=== PATIENT | male | born 1935 | race Caucasian/White ===

== ENCOUNTER 2019-02-14 16:52 | Inpatient (IN) ==
[2019-02-14] MEDS ORDERED: NS 1,000 ML IV ONE ×3 (17:11→20:02)
--- NOTE | 2019-02-14 17:17 | PROVIDER DOCUMENTATION ---
HPI-General Adult - General Chief Complaint: Heat Related Stated Complaint: HEAT RELATED Time Seen by Provider: 02/14/19 17:07 Source: patient, family, EMS Allergies/Adverse Reactions: Patient Allergies Allergy/AdvReac Type Severity Reaction Status Date / Time No Known Allergies Allergy Verified 02/14/19 17:08 Home Medications: Home Medication List Medication Instructions Recorded Confirmed Last Taken Type Amlodipine Besylate 1 tab PO DAILY 02/14/19 02/14/19 Unknown History Bisoprolol Fumarate/Hctz 1 tab PO DAILY 02/14/19 02/14/19 Unknown History [Bisoprolol-Hctz 5-6.25 mg Tab] Citalopram Hydrobromide 20 mg PO DAILY 02/14/19 02/14/19 Unknown History [Citalopram HBr] Levothyroxine [Synthroid] 50 microgm PO DAILY 02/14/19 02/14/19 Unknown History Lisinopril 1 tab PO DAILY 02/14/19 02/14/19 Unknown History - History of Present Illness -Gen Adult Nature of Presenting Problems: 83 YOM PRESENTS VIA EMS FOR POSSIBLE HEAT RELATED DIZZINESS AND HYPOTENSION. HE WAS FOUND BY HIS SON WITH THE AC OFF IN THE HOUSE WITH DIZZINESS. HE DENIES CURRENT SYMPTOMS HAS RECEIVED 1L OF NS IN ROUTE. HE DENIES CP, FALL, SOB, N/V/D. THERE IS NO TIME OF WHEN THE AIR WAS NOT WORKING THE PATIENT LIVES ALONE Location of Pain/Injury: reports: none Pain Radiation: reports: no radiation Quality of Pain: reports: none Severity: reports: moderate Onset/Duration: reports: unsure Timing: reports: improving Context/Activities at Onset: reports: other (HEAT EXPOSURE) Modifying Factors: improves with: nothing Associated Symptoms: reports: dizziness, weakness Similar Symptoms Previously?: No Recently seen or treated by another doctor?: No Review of Systems - Adult - REVIEW OF SYSTEMS - ADULT Constitutional: reports: no symptoms reported. denies: see HPI, chills, fever, fatique, night sweats, weight gain, weight loss, other Eyes: reports: no symptoms reported. denies: see HPI, discharge, dry eyes, decreased vision, blurred vision, double vision, eye pain, redness, other Ears, Nose, Mouth & Throat: reports: no symptoms reported. denies: see HPI, ear discharge, ear pain, hearing loss, tinnitus, epistaxis, sinus problem, nose pain, loose teeth, mouth/dental pain, mouth swelling, hoarseness, throat pain, t hroat swelling, other Cardiovascular: reports: no symptoms reported. denies: see HPI, chest pain, edema, heart murmur, irregular heart rate, orthopnea, palpitations, poor cir culation, PND, syncope, other Respiratory: reports: no symptoms reported. denies: see HPI, chronic cough, cough, dyspnea on exertion, excessive sputum production, hemoptysis, pleurisy, shortness of breath, wheezing, other Gastrointestinal: reports: no symptoms reported. denies: see HPI, abdominal pain, hematemesis, constipation, diarrhea, difficulty swallowing, frequent heartburn, nausea, poor appetite, rectal bleeding, vomiting, other Genitourinary: reports: no symptoms reported. denies: see HPI, dysuria, discharge, frequency, flank pain, frequent UTI's, hematuria, hesitency, incontinence, urinary retention, urgency, other Musculoskeletal: reports: see HPI, muscle weakness. denies: no symptoms reported, bone pain, back pain, frequent leg cramps, joint pain, joint swelling, muscle aches, neck pain, other Integumentary: reports: no symptoms reported. denies: see HPI, hives, hair loss, itching, mole changes, nail changes, rash, skin sores/ulcer, skin thickening, other Neurological: reports: see HPI, dizziness/vertigo. denies: no symptoms reported, ataxia, headache/migraines, loss of balance, numbness, paresthesia, seizure, slurred speech, syncope, tremors, other Psychiatric: reports: no symptoms reported. denies: see HPI, anxiety, anti- depressant use, alcohol/drug dependence, depression, emotional problems, insomnia, panic attacks, suicidal thoughts, other Endocrine: reports: no symptoms reported. denies: see HPI, change in skin pigment, excessive sweating, goiter, cold intolerance, heat intolerance, increased hunger, increased thirst, polyuria, other Hematologic/Lymphatic: reports: no symptoms reported. denies: see HPI, blood clots, easy bruising, low blood count, lymphedema, prolonged bleeding, swollen lymph nodes, transfusions, other Allergic/Immunologic: reports: no symptoms reported. denies: see HPI, allergic reactions, allergic rhinitis, asthma, eczema, food allergy, frequent infections, hay fever, hives, positive PPD, urticaria, other Past History - Adult - PAST MEDICAL HISTORY-ADULT Review of Records: reports: Nursing Assessment Review, Social history reviewed & non-contributory. Physical Exam-General - PHYSICAL EXAM-ADULT Initial Vital Signs Reviewed: Yes - CONSTITUTIONAL General Appearance: alert, no apparent distress - EYES Eyes: PERRL/EOMI, pink conjunctivae - HEAD, EARS, NOSE, MOUTH & THROAT HENMT: normocephalic/atraumatic, moist mucous membranes, normal ENT inspection - NECK Neck: non-tender, full range of motion, supple - RESPIRATORY Respiratory: chest non-tender, lungs clear, normal breath sounds, no pleuratic chest pain, no respiratory distress, no accessory muscle use - CARDIOVASCULAR Cardiovascular: normal peripheral pulses, regular rate, rhythm, no edema, no gallop, no JVD, no murmur - GASTROINTESTINAL (ABDOMEN) Abdominal Exam: normal bowel sounds, non tender, soft - LYMPHATIC Lymphatic: no adenopathy - MUSCULOSKELETAL Back Exam: normal inspection, no CVA tenderness, no vertebral tenderness Extremity: normal range of motion, non-tender - SKIN Integumentary: normal color, normal turgor, warm/dry - NEUROLOGIC Neurologic: grossly normal - PSYCHIATRIC Psych/Mental Status: normal mood/affect, oriented x 3 Progress - PLAN OF CARE/RESULTS Progress/Plan/Lab Results: Vital Signs - 8 hr 02/14/19 17:02 Pulse Rate 92 H Respiratory Rate 18 Blood Pressure 97/61 O2 Sat by Pulse Oximetry 96 Orders Category Date Time Status Orthostatic Vital Signs NOW Care 02/14/19 17:[address] HEAD W/O CONTRAST [CT] Stat Exams 02/14/19 17:11 Ordered CBC WITH ELECTRONIC DIFF [HEME] Stat Lab 02/14/19 17:11 Uncollected CK PROFILE [SP CHEM] Stat Lab 02/14/19 17:11 Ordered COMPREHENSIVE METABOLIC PANEL [CHEM] Stat Lab 02/14/19 17:11 Uncollected PROTIME WITH INR [COAG] Stat Lab 02/14/19 17:11 Uncollected PTT [COAG] Stat Lab 02/14/19 17:11 Uncollected TROPONIN T Stat Lab 02/14/19 17:11 Ordered Ns 1000 ml IV Bolus X1 Med 02/14/19 17:11 Ordered 0.9% Sodium Chloride Inj [Ns] 1,000 ml IV 999 mls/hr EKG [EKG] Stat Ther 02/14/19 17:11 Ordered Result Diagrams: 02/14/19 17:25 02/14/19 17:25 - EKG 1 Time of EKG reading by physician:: 17:32 EKG Read and Signed by:: Shamir Proctor EKG Interpretation (*Must complete 3 of following elements*): Abnormal Rate: 84 Rhythm: SR WITH OCC PVC Jbphh: normal QRS: LBB (BIFASICULAR BLOCK), RBB (BIFASICULAR BLOCK) MT Interval: normal ST Wave: normal Prior EKG Comparison: no prior EKG - CT/MRI 1 CT Study: Head Impression: See EMR Report (CT HEAD W/O CONTRAST - 02/14/2019 INDICATION: DIZZINESS COMPARISON: None FINDINGS: There is moderate diffuse cerebral atrophy. No intracranial mass or hemorrhage. There is mild cerebral white matter chronic microvascular disease. The skull is intact. The sinuses, mastoids, and middle ears are clear. IMPRESSION: No acute process. This exam was performed using automated exposure control, adjustment of mA or kV according to patient size, and/or use of iterative reconstruction technique Electronically signed by Ravinder Blair 02/14/2019 7:19 PM 02/14/191918 Interpreting Physician: Ravinder Blair MD Dictated Date/Time: 02/14/191917 cc: Flor Vazquez; Trevin Kaplan MD) - CONSULTS/PCP/HOSPITALIST Notification #1 *Consult/PCP/Hospitalist*: DR BEATTY Time Discussed: 19:27 Consult Disposition: Admit Departure - Departure Date of Disposition Decision: 02/14/19 Time of Disposition Decision: 19:24 DIAGNOSIS: JOHNSON (acute kidney injury), Dehydration Disposition: ADMITTED INPATIENT 09 Certified Medical Emergency: Emergent Condition: Stable Referrals and Follow-Ups: Trevin Kaplan MD [Primary Care Provider] - - Critical Care Note This patient required my direct & personal management of CC.: No Attestation - Physician/ MELODY Attestation Patient care was provided by Advanced Practice Provider:: Yes Advanced Practice Provider:: Flor Vazquez Advanced Practice Provider documentation review:: The Mid-level provider documentation, treatment plan and medical decision making was reviewed by the physician who agrees with all treatment and medical decision making by the MLP. The physician spent face to face time with patient:: No Advanced Practice Provider documentation review:: Supervising physician onsite and consulted in the evaluation and care of this patient. The physician did not have a face to face encounter with the patient.
--- NOTE | 2019-02-14 17:38 | EKG Report ---
Test Performed on : 02/14/2019 5:32:04 PM Test Reason : DIZZINESS Blood Pressure : / mmHG Vent. Rate : 084 BPM Atrial Rate : 084 BPM P-R Int : 152 ms QRS Dur : 150 ms QT Int : 444 ms P-R-T Axes : 013 -80 053 degrees QTc Int : 524 ms Sinus rhythm. with occasional premature ventricular complexes. Right bundle branch block Left anterior fascicular block Bifascicular block Abnormal ECG No previous ECGs available Unconfirmed Result
[2019-02-14 17:47] LABS: BASO# 0.01 X1000 (0.0-0.2); BASO% 0.1 % (0.0-0.8); HEMATOCRIT 48.9 % (42.0-52.0); HEMOGLOBIN 16.3 g/dL (14.0-18.0); IMM GRAN# 0.05 X1000 (0.0-0.04); IMM GRAN% 0.5 % (0.0-0.5); LYMPH# 0.61 X1000 (1.2-3.4); LYMPH% 5.8 % (20.5-51.1); MCH 30.1 PG (27-31); MCHC 33.3 g/dL (33-37); MCV 90.4 FL (81-99); MONO# 0.53 X1000 (0.11-0.59); MPV 11.4 FL (7.4-10.4); NEUT% 88.6 % (42.2-75.2); PLT 175 X1000 (130-400); RBC 5.41 XMIL (4.7-6.1); RDW 14.6 % (11.5-14.5)
[2019-02-14 17:56] LABS: INR 1.15; PROTIME 15.3 Seconds (11.0-16.0)
[2019-02-14 17:57] LABS: PTT 24.1 Seconds (22.3-41.8)
[2019-02-14 18:14] LABS: ALBUMIN 3.9 g/dL (3.5-5.0); CALCIUM 8.6 mg/dL (8.8-10.2); CREATININE 5.4 mg/dL (0.7-1.2); POTASSIUM 4.7 mmol/L (3.5-5.1); TOTAL BILIRUBIN 0.8 mg/dL (0.20-1.00); TOTAL PROTEIN 6.6 g/dL (6.3-8.3)
--- NOTE | 2019-02-14 19:21 | Diag Imaging Result Doc PS360 ---
CT HEAD W/O CONTRAST - 02/14/2019 INDICATION: DIZZINESS COMPARISON: None FINDINGS: There is moderate diffuse cerebral atrophy. No intracranial mass or hemorrhage. There is mild cerebral white matter chronic microvascular disease. The skull is intact. The sinuses, mastoids, and middle ears are clear. IMPRESSION: No acute process. This exam was performed using automated exposure control, adjustment of mA or kV according to patient size, and/or use of iterative reconstruction technique Electronically signed by Ravinder Blair 02/14/2019 7:19 PM
[2019-02-15 06:56] LABS: HEMATOCRIT 45.4 % (42.0-52.0); MCH 30.1 PG (27-31); MCV 91.2 FL (81-99); RBC 4.98 XMIL (4.7-6.1); RDW 14.3 % (11.5-14.5); WBC 10.42 X1000 (4.8-10.8)
[2019-02-15 07:19] LABS: ALBUMIN 3.4 g/dL (3.5-5.0); CALCIUM 8.5 mg/dL (8.8-10.2); CREATININE 3.4 mg/dL (0.7-1.2); POTASSIUM 4.1 mmol/L (3.5-5.1); TOTAL BILIRUBIN 0.6 mg/dL (0.20-1.00); TOTAL PROTEIN 6.1 g/dL (6.3-8.3)
[2019-02-15 07:20] LABS: MAGNESIUM 2.3 mg/dL (1.5-2.7)
[2019-02-15] MEDS: NS 1,000 ML IV SCH ×3 (07:33→22:26)
--- NOTE | 2019-02-15 16:09 | Diag Imaging Result Doc PS360 ---
EXAM: MRI BRAIN W/O CONTRAST 02/15/2019 HISTORY: ams r/o cva TECHNIQUE: T1 sagittal, axial, T2, FLAIR, DWI axial and coronal gradient echo. COMMENT: There are no previous MRI studies available for comparison. There is some increased T2-weighted signal intensity in the yousif and there are patchy and punctate areas of increased T2-weighted signal intensity in the subcortical and periventricular white matter bilaterally particularly in the area near the right frontal horn. There is no evidence of restricted diffusion. No mass effect, bleed, or abnormal extra-axial fluid collection is present. IMPRESSION: Chronic ischemic microvascular changes. No evidence of acute disease. Electronically signed by Maury Stroud 02/15/2019 4:07 PM
--- NOTE | 2019-02-15 16:27 | Diag Imaging Result Doc PS360 ---
EXAM: US RENAL 2 (RETROPER) COMPLETE 02/15/2019 HISTORY: aRF TECHNIQUE: Renal ultrasound COMMENT: The right kidney is 9.4 x 4.9 x 5.5 cm. The left is 10.4 x 5.5 x 5.8 cm. There is a 5.2 cm cyst in the lower pole of the left kidney. There is no evidence of solid mass hydronephrosis or stones. The bladder is not well distended. IMPRESSION: No evidence of obstructive uropathy. Electronically signed by Maury Stroud 02/15/2019 4:25 PM
--- NOTE | 2019-02-15 17:55 | HISTORY AND PHYSICAL ---
PRIMARY CARE PROVIDER: Trevin Kaplan MD. CHIEF COMPLAINT: Unknown per patient. Per ED record, heat related. HISTORY OF PRESENT ILLNESS: Mr. Pat is an 83-year-old gentleman who was brought into the ED via EMS for possible heat related dizziness and hypotension. He was found by his son with the AC off in his house with dizziness. Upon examination this morning, the patient still had no recollection of the events that led him to coming into the hospital. He just states I know I went to sleep and here I am. There is some question of dementia. The patient has repeated the same stories about his as well as his Corvette several times throughout the course of my interview. He was easily redirected and then would go back to the same stories and asking the same questions. Workup in the ED showed dehydration and acute kidney injury. He has had some improvement with IV fluids overnight. We are currently checking a urinalysis and will continue with his IV fluids and home medications as appropriate. PAST MEDICAL HISTORY: As per ED record: 1. Hypertension. 2. Hypothyroidism. PAST SURGICAL HISTORY: Relatively unknown. There is no family at bedside. FAMILY HISTORY: Unknown. SOCIAL HISTORY: He is a . He was for 53 years. He reports that he still drives every day to [place] to get him a biscuit and gravy and Coke. He also loves to drive and bing around with a red Corvette. He denies any tobacco or alcohol use. He first retired from [employer] and [employer] [facility] [place]. His 's name was Neha and she was an SLIP [employer]ER for Dr. [employer]irst[employer]. They have 3 monkeys, AKA children. PHYSICAL EXAMINATION: VITAL SIGNS: Temperature 97.7 degrees, heart rate 53, respirations 18, blood pressure 104/86, O2 is 98% on room air. GENERAL: Mr. Pat is a pleasantly confused, 83-year-old male who is sitting up in the bed, in no acute distress. HEENT: Atraumatic, normocephalic. PERRL. Mucous membranes are dry. Poor dentition. He does have some type of dentures that he wears on the top and bottom that he does not currently have. We will see if staff has them or if they were at home. CARDIOVASCULAR: S1, S2 appreciated. No murmurs, gallops, rubs noted. RESPIRATORY: Lung sounds clear bilaterally. GI: Soft, nontender, nondistended. Positive bowel sounds 4 quadrants. EXTREMITIES: Negative for edema. NEUROLOGIC: Patient is awake, alert. He knows his name, his date of . He was unsure on the year or where he was, but he knew he was in the hospital. He was unsure of his situation and why he was in the hospital. His last thing he remembered was just lying down to go to sleep. He does repeat himself quite often. Will tell you the same story and ask you the same questions repeatedly. However, he is easily redirected. DIAGNOSTIC DATA: Head CT showed no acute process, but some moderate diffuse cerebral atrophy and mild cerebral white matter chronic microvascular disease. LABORATORY DATA: White count 10, hemoglobin and hematocrit 15 and 45, platelet count is 118,000. Sodium 146, potassium 4.1, BUN 121, creatinine 3.4. Initially his BUN was 140, creatinine was 5.4, blood glucose is 118, magnesium 2.3. Troponin 0.030. CK 52. ASSESSMENT AND PLAN: 1. Heat exhaustion. We will continue with IV fluids. 2. Acute kidney injury. We will continue with aggressive IV hydration. 3. Dehydration secondary to heat exhaustion. We will continue with IV fluids. 4. Probable dementia. 5. Hypothyroidism. 6. Hypertension. 7. Further recommendation to follow physician evaluation, laboratory data and diagnostic data. There was currently no family at the bedside, so I do not know the patient's baseline cognitive function. We may need to further investigate with an MRI. We will wait to see if his kidney function continues to improve before we consult Nephrology. We will check some more urine labs. We will check some more labs in relation to his kidney function as we do not know how aggressive the family will want us to be at this time. Dictated by LIZZ Pruett for Jimmie Dowling MD cc: MD Trevin Li MD
[2019-02-15 21:03] LABS: BILIRUBIN URINE NEGATIVE (NEGATIVE); BLOOD URINE NEGATIVE (NEGATIVE); GLUCOSE URINE NEGATIVE (NEGATIVE); KETONE URINE NEGATIVE (NEGATIVE); LEUKOCYTES URINE NEGATIVE (NEGATIVE); NITRITE URINE NEGATIVE (NEGATIVE); PROTEIN URINE NEGATIVE (NEGATIVE); UROBILINOGEN URINE NORMAL
[2019-02-15 21:04] LABS: CLARITY CLEAR (CLEAR); COLOR YELLOW
[2019-02-15 21:07] LABS: URINE BACTERIA 1+ /HFP; URINE CAST NONE SEEN /LPF; URINE CRYSTAL NONE SEEN /HPF; URINE EPITHELIAL CELLS <10 /HPF (<10); URINE SOURCE CLEAN CATCH; URINE WBC <10 /HPF (<10); URINE YEAST NONE SEEN /HPF
--- NOTE | 2019-02-16 02:22 | HISTORY AND PHYSICAL ---
SUBJECTIVE: The patient was seen and examined by myself. Full note dictated and discussed with the nurse practitioner. The patient notes that he has not really been feeling well for the past year after his of several years . He notes he did not eat or drink very well. Denies any suicidal or homicidal ideations. He was noted to be on the floor by his son and was brought to the ER in acute renal failure. We are going to place him in the hospital, IV fluids, follow his kidney function, it was 5.4, currently it is 3.6 after fluid rehydration. We will continue to follow. cc: Jimmie Dowling MD
[2019-02-16 06:50] LABS: ALBUMIN 3.3 g/dL (3.5-5.0); CALCIUM 8.4 mg/dL (8.8-10.2); CREATININE 1.6 mg/dL (0.7-1.2); PHOSPHORUS 3.1 mg/dL (2.7-4.5); POTASSIUM 4.2 mmol/L (3.5-5.1)
[2019-02-16] MEDS: CELEXA PO SCH (10:26)
[2019-02-16] MEDS: NORVASC PO SCH (10:26)
[2019-02-16] MEDS: NS 1,000 ML IV SCH ×2 (10:26→17:27)
[2019-02-17] MEDS: NS 1,000 ML IV SCH ×2 (02:12→09:25)
--- NOTE | 2019-02-17 03:04 | PROGRESS NOTE ---
DATE: 02/16/2019 SUBJECTIVE: Patient notes that he is feeling better. Denies any fevers or chills. Has not really been out of bed and ambulating. PHYSICAL EXAMINATION: Vital Signs: Reviewed. General: He is awake, alert. HEENT: Normocephalic, atraumatic. JANET. Neck: Supple. No JVD. Cardiovascular: Regular rate. Chest: Clear. Abdomen: Soft. Extremities: Moves all extremities. Neurologic: No changes. ASSESSMENT: 1. Nausea, vomiting, appears resolved. 2. Acute renal failure. Continues to improve. Creatinine was 5.6 on admit, currently is down to 1.6. 3. Heat exhaustion. 4. Dehydration. 5. Expected dementia. The patient frequently repeats himself and does not remember the conversation that was had earlier. 6. Hypothyroidism. 7. Hypertension. PLAN: We will continue patient in the hospital. Continue IV fluids today. Continue physical therapy. Hopefully, if his creatinine and he physically improves we can discharge home tomorrow. cc: Jimmie Dowling MD
[2019-02-17] MEDS ORDERED: SYNTHROID PO SCH (07:00)
[2019-02-17] MEDS: NORVASC PO SCH (09:24)
[2019-02-17] MEDS: CELEXA PO SCH (09:24)
[2019-02-17 16:15] VITALS: BP 155/73
--- NOTE | 2019-02-17 20:06 | DISCHARGE SUMMARY ---
ADMISSION DATE: 02/14/2019 DISCHARGE DATE: 02/17/2019 CONSULTATIONS: None. PERTINENT PROCEDURES: Head CT - no acute process. Brain MRI showed chronic ischemic microvascular changes but no evidence of acute disease. Renal ultrasound - no evidence of obstructive uropathy. DISCHARGE DIAGNOSES: 1. Nausea and vomiting, resolved. 2. Acute renal failure. The patient has continued to improve. Initially his BUN was 140 and his creatinine was 5.4. These have continued to trend down daily. His creatinine is now 1.6. 3. Heat exhaustion, resolved. 4. Dehydration, resolved. 5. Probable dementia. The patient does frequently repeat himself and does not remember earlier conversations. 6. Hypothyroidism. 7. Hypertension. HOSPITAL COURSE: Briefly, Mr. Pat is an 83-year-old gentleman who was brought in to the ED by EMS for possible heat-related dizziness and hypotension. He was found by his son with the AC off in his house. The patient did not have any recollection of the events that led him to coming in to the hospital. All he remembered was just going to sleep and waking up in the hospital. There is some question of dementia. The patient does repeat himself and will forget earlier conversations. Workup in the ED showed that he was severely dehydrated and had acute renal failure. He was initiated on IV fluids. He has had great improvement in his renal function. His dehydration has resolved. He is eating and drinking okay. He was visited by Case Management. They deny any need, so he will be discharged back home. VITAL SIGNS AT TIME OF DISCHARGE: Temperature 98.6, heart rate 55, respirations 20, blood pressure 118/45, 02 saturation 96% on room air. DISCHARGE DIET: Regular. DISCHARGE MEDICATIONS: 1. Amlodipine 5 mg p.o. daily. 2. Celexa 20 mg p.o. daily. 3. Lisinopril 40 mg p.o. daily. 4. Synthroid 50 mcg p.o. daily. FOLLOWUP: Mr. Pat will need to follow up with his primary care provider, Dr. Trevin Kaplan, in the next 7-10 days. He can return to the ED or call 911 for any worsening symptoms. Dictated by LIZZ Pruett for Jimmie Dowling MD cc: MD Trevin Li Eusebio
--- NOTE | 2019-02-18 14:48 | DISCHARGE SUMMARY ---
ADMISSION DATE: 02/14/2019 DISCHARGE DATE: 02/17/2019 ADDENDUM: Patient seen and examined by myself. Full note dictated and discussed with nurse practitioner. On discharge, patient is awake, alert. He is in no distress. Certainly feel as though he may have some mild dementia just given interaction during the hospital stay. He was admitted to the hospital with marked dehydration and acute renal failure. Thankfully, all this improved. On discharge, he is awake, alert. His kidney function has dramatically improved. Creatinine dropped 5.6 down to 1.6. He is eating and drinking with no problems. cc: Jimmie Dowling MD
== END 2019-02-17 17:42 | disposition home health service (06) | DRG 684 ==
LOC: P.ED 16:52 → P.MEDSURG 19:51
PROVIDERS: ATTEND Family Medicine